=== PATIENT | female | born 1985 | race Caucasian/White ===

== ENCOUNTER → 2016-06-28 | Outpatient (CLI) | payer OTHER | LOC: RAD 14:33 | PROVIDERS: ATTEND Student in an Organized Health Care Education/Training Program | DX: N97.9 Female infertility, unspecified (principal) | CPT/HCPCS: 58340; 74740 ==

== ENCOUNTER 2016-09-12 04:36 | Emergency (ER) | payer OTHER ==
[2016-09-12] MEDS ORDERED: ALBUTEROL SULFATE 0.083% NEB 2.5 MG/3 ML AMPUL NEB ONE (06:01)
--- NOTE | 2016-09-12 06:02 | ER Document Report ---
ED Medical Screen (RME) - General Chief Complaint: Headache Stated Complaint: COUGHING UP BLOOD Notes: Patient with mildly productive cough since with blood-tinged sputum that started this morning. Admits to associated shortness of breath. Denies history of asthma, former smoker. Denies any other past medical history is TRAVEL OUTSIDE OF THE [place] IN LAST 30 DAYS: No - Related Data Allergies/Adverse Reactions: Penicillins Adverse Reaction (Mild, Verified 08/19/15 10:22) itch & abdo pain Past Medical History - Social History Frequency of alcohol use: None Renal/ Medical History: Reports: Hx Ectopic , Hx Kidney Stones, Hx Ovarian Cysts - PCO S., Hx Pelvic Inflammatory Disease. Denies: Hx Peritoneal Dialysis Musculoskeltal Medical History: Reports Hx Musculoskeletal Trauma Skin Medical History: Reports Hx Cellulitis Psychiatric Medical History: Reports: Hx Depression Traumatic Medical History: Reports: Hx Fractures Infectious Medical History: Denies: Hx MRSA Past Surgical History: Reports: Hx Gynecologic Surgery - ectopic , Hx Orthopedic Surgery - finger reconstruction as an following an injury - Immunizations Immunizations up to date: Yes Hx Diphtheria, Pertussis, Tetanus Vaccination: Yes Physical Exam - Vital signs Vitals: Temp Pulse Resp BP Pulse Ox 98.0 F 96 20 124/80 96 09/12/16 04:37 09/12/16 04:37 09/12/16 04:37 09/12/16 04:37 09/12/16 04:37 Course - Vital Signs Vital signs: Temp Pulse Resp BP Pulse Ox 98.0 F 96 16 124/80 96 09/12/16 04:37 09/12/16 04:37 09/12/16 04:43 09/12/16 04:37 09/12/16 04:37
[2016-09-12] MEDS ORDERED: IBUPROFEN 800 MG TABLET PO ONE (07:24)
--- NOTE | 2016-09-12 07:49 | ER Document Report ---
HPI - HPI Patient complains to provider of: cough, body aches Onset: Other - last Quality of pain: Achy Severity: Severe Pain Level: 5 Context: Patient presents emergency department with complaints of headache achy all over cough chest hurts when she coughs and vomited once. She reports she is producing yellow sputum. She reports and symptoms since . She denies fever or diarrhea. She reports no pain with void but reports frequency. Patient reports she's been taking Mucinex [id number] without relief of symptoms. Denies sick exposure but reports she works at [employer]. Associated Symptoms: Productive cough, Vomiting Exacerbated by: Coughing Relieved by: Denies Similar symptoms previously: No Recently seen / treated by doctor: No - REPRODUCTIVE Reproductive: DENIES: : - DERM Skin Color: Normal Past Medical History - General Information source: Patient Last Menstrual Period: jun- pcos - Social History Smoking Status: Never Smoker Cigarette use (# per day): No Frequency of alcohol use: Rare Drug Abuse: None Occupation: [employer] Lives with: Family Family History: Reviewed & Not Pertinent Patient has suicidal ideation: No Patient has homicidal ideation: No Renal/ Medical History: Reports: Hx Ectopic , Hx Kidney Stones, Hx Ovarian Cysts - PCO S., Hx Pelvic Inflammatory Disease. Denies: Hx Peritoneal Dialysis Musculoskeltal Medical History: Reports Hx Musculoskeletal Trauma Skin Medical History: Reports Hx Cellulitis Psychiatric Medical History: Reports: Hx Depression Traumatic Medical History: Reports: Hx Fractures Infectious Medical History: Denies: Hx MRSA Past Surgical History: Reports: Hx Gynecologic Surgery - ectopic , Hx Orthopedic Surgery - finger reconstruction as an following an injury - Immunizations Immunizations up to date: Yes Hx Diphtheria, Pertussis, Tetanus Vaccination: Yes Vertical Provider Document - CONSTITUTIONAL Agree With Documented VS: Yes Exam Limitations: No Limitations General Appearance: WD/WN, No Apparent Distress - INFECTION CONTROL TRAVEL OUTSIDE OF THE [place] IN LAST 30 DAYS: No - HEENT HEENT: Atraumatic, Normocephalic. negative: Conjuctival Injection, Pharyngeal Erythema - No peritonsillar abscess good clear voice no trismus, Tympanic Membrane Red, Tympanic Membrane Bulging - NECK Neck: Normal Inspection. negative: Supple, Lymphadenopathy-Left, Lymphadenopathy-Right - RESPIRATORY Respiratory: No Respiratory Distress, Rhonchi - Respiratory rate even nonlabored frequent cough noted O2 Sat by Pulse Oximetry: 96 - CARDIOVASCULAR Cardiovascular: Regular Rate, Regular Rhythm - GI/ABDOMEN Gastrointestinal: Abdomen Soft, Abdomen Non-Tender - BACK Back: Normal Inspection - MUSCULOSKELETAL/EXTREMETIES Musculoskeletal/Extremeties: JOON JOHANSEN - NEURO Level of Consciousness: Awake, Alert, Appropriate Motor/Sensory: No Motor Deficit - DERM Integumentary: Warm, Dry, No Rash Course - Re-evaluation Re-evalutation: 09/12/16 08:42 UA negative hCG negative. Patient instructed on infiltrate Zithromax. Patient instructed on importance of monitoring temperature Tylenol. Patient instructed on importance of follow-up with primary care provider. - Vital Signs Vital signs: Temp Pulse Resp BP Pulse Ox 98.0 F 96 16 124/80 96 09/12/16 04:37 09/12/16 04:37 09/12/16 04:43 09/12/16 04:37 09/12/16 04:37 - Diagnostic Test Radiology reviewed: Image reviewed, Reports reviewed - Diagnostic report text EXAM DESCRIPTION: CHEST PA/LAT COMPLETED DATE/TIME: 09/12/2016 6:11 am REASON FOR STUDY: cough COMPARISON: None. TECHNIQUE: Frontal and lateral radiographic views of the chest acquired. NUMBER OF VIEWS: Two view. LIMITATIONS: None. FINDINGS: LUNGS AND PLEURA: Patchy infiltrate is seen of the right lung base, lungs otherwise clear MEDIASTINUM AND HILAR STRUCTURES: No masses or contour abnormalities. HEART AND VASCULAR STRUCTURES: Heart normal size. No evidence for failure. BONES: No acute findings. HARDWARE: None in the chest. OTHER: No other significant finding. TECHNICAL DOCUMENTATION: JOB ID: [id number] [employer]- All Rights Reserved RAD/CHEST PA/LAT IMPRESSION: Patchy right basilar infiltrate Discharge - Discharge Clinical Impression: Cough, Elevated blood pressure reading Pneumonia Qualifiers: Pneumonia type: due to unspecified organism Laterality: right Lung location: lower lobe of lung Qualified Code(s): J18.1 - Lobar pneumonia, unspecified organism Headache Qualifiers: Headache type: unspecified Headache chronicity pattern: unspecified pattern Intractability: not intractable Qualified Code(s): R51 - Headache Condition: Stable Disposition: HOME, SELF-CARE Instructions: Azithromycin ([facility]), Pneumonia ([facility]), Headache ([facility]), Oral Narcotic Medication ([facility]) Additional Instructions: *You have been evaluated for a body aches cough, pneumonia, headache *Take medication as prescribed *Increase fluids *Monitor your temperature, take Tylenol as indicated *Follow up with a primary care provider within one week for recheck *Return to ED for increasing fever, cough, worsening condition, changes, needs, trouble breathing Monitor your blood pressure. Your blood pressure was elevated today. This may be because you were anxious, in pain or because you need medication. It is important to follow up with your primary care provider for full evaluation. Prescriptions: Azithromycin [Zithromax 250 mg Tablet] 250 mg PO ASDIR PRN #6 tablet PRN Reason: Hydrocodone/Acetaminophen [[place] 5-325 Tablet] 1 each PO QID #15 tablet Forms: Elevated Blood Pressure, Return to Work
[2016-09-12 08:11] LABS: APPEARANCE,URINE CLEAR; BILIRUBIN,URINE NEGATIVE (NEGATIVE); GLUCOSE, URINE NEGATIVE (NEGATIVE); KETONES,URINE NEGATIVE (NEGATIVE); LEUKOCYTE ESTERASE,URINE NEGATIVE (NEGATIVE); NITRITE,URINE NEGATIVE (NEGATIVE); PROTEIN,URINE NEGATIVE (NEGATIVE); UROBILINOGEN,URINE NEGATIVE mg/dL (<2.0)
[2016-09-12 09:14] VITALS: BP 138/84
== END 2016-09-12 08:58 | disposition home or self-care (01) ==
LOC: ER 04:36
DX: J18.1 Lobar pneumonia, unspecified organism (principal); R51 Headache; R05 Cough; R07.9 Chest pain, unspecified; R11.10 Vomiting, unspecified; R35.0 Frequency of micturition; R03.0 Elevated blood-pressure reading, without diagnosis of hypertension
CPT/HCPCS: 71020; 81001; 81025; 87804; 94640; 99283

== ENCOUNTER 2016-09-19 04:47 | Emergency (ER) | payer OTHER ==
--- NOTE | 2016-09-19 07:30 | ER Document Report ---
ED Respiratory Problem - General Chief Complaint: Productive Cough Stated Complaint: COUGH VOMITING SORE THROAT Time seen by provider: 07:28 Mode of Arrival: Ambulatory Information source: Patient Notes: 30-year-old female presents to ED for cough congestion and green sputum with nausea vomiting sore throat and body aches. She states she was treated for pneumonia last week and she has had intermittent fever. She has not had any fever for the last couple days. Speaking in full complete sentences. Does have a minor cough at this time afebrile. No acute distress at this time. 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 She has a past medical history of miscarriages pneumonia finger surgery PCO S and kidney stones. She also has an allergy of penicillin TRAVEL OUTSIDE OF THE [place] IN LAST 30 DAYS: No - HPI Patient complains to provider of: Cough Onset: Last week Duration: Continuous Initiating Event: URI Quality of pain: Achy Severity: Moderate Pain Level: 3 Cough: Productive Sputum amount: Small Sputum color: Green, Yellow Sputum consistency: Thick Associated symptoms: Cough, PND, Runny nose, Sore Throat. denies: Fever Similar symptoms previously: Yes Recently seen / treated by doctor: Yes - Related Data Allergies/Adverse Reactions: Penicillins Adverse Reaction (Mild, Verified 08/19/15 10:22) itch & abdo pain Past Medical History - General Information source: Patient - Social History Smoking Status: Never Smoker Cigarette use (# per day): No Chew tobacco use (# tins/day): No Smoking Education Provided: No Frequency of alcohol use: Occasional Drug Abuse: None Occupation: childcare Lives with: Family Family History: Arthritis, CAD, CVA, DM, Hyperlipidemia, Hypertension, Malignancy Patient has suicidal ideation: No Patient has homicidal ideation: No - Past Medical History Cardiac Medical History: Reports: None Pulmonary Medical History: Reports: Hx Pneumonia EENT Medical History: Reports: None Neurological Medical History: Reports: None Endocrine Medical History: Reports: None Renal/ Medical History: Reports: Hx Ectopic , Hx Kidney Stones, Hx Ovarian Cysts - PCO S., Hx Pelvic Inflammatory Disease Malignancy Medical History: Reports: None GI Medical History: Reports: None Musculoskeltal Medical History: Reports Hx Musculoskeletal Trauma Skin Medical History: Reports Hx Cellulitis Psychiatric Medical History: Reports: Hx Depression Traumatic Medical History: Reports: Hx Fractures Infectious Medical History: Reports: None Past Surgical History: Reports: Hx Gynecologic Surgery - ectopic , Hx Orthopedic Surgery - finger reconstruction as an following an injury - Immunizations Immunizations up to date: Yes Hx Diphtheria, Pertussis, Tetanus Vaccination: Yes Review of Systems - Review of Systems Constitutional: Recent illness EENT: Nose discharge, Sinus discharge, Throat pain Cardiovascular: No symptoms reported Respiratory: Cough Gastrointestinal: No symptoms reported Genitourinary: No symptoms reported Female Genitourinary: No symptoms reported Musculoskeletal: No symptoms reported Skin: No symptoms reported Hematologic/Lymphatic: No symptoms reported Neurological/Psychological: No symptoms reported Physical Exam - Vital signs Vitals: Temp Pulse Resp BP Pulse Ox 98.2 F 82 16 122/87 H 97 09/19/16 04:51 09/19/16 04:51 09/19/16 04:51 09/19/16 04:51 09/19/16 04:51 Interpretation: Normal - General General appearance: Appears well, Alert - HEENT Head: Normocephalic, Atraumatic Eyes: Normal Pupils: PERRL Ears: Normal External canal: Normal Tympanic membrane: Normal Nasal: Purulent discharge, Swelling Mouth/Lips: Normal Mucous membranes: Normal Pharynx: Post nasal drainage Neck: Normal - Respiratory Respiratory status: No respiratory distress Chest status: Nontender Breath sounds: Normal Chest palpation: Normal - Cardiovascular Rhythm: Regular Heart sounds: Normal auscultation Murmur: No - Abdominal Inspection: Normal Distension: No distension Bowel sounds: Normal Tenderness: Nontender Organomegaly: No organomegaly - Back Back: Normal, Nontender - Extremities General upper extremity: Normal inspection, Nontender, Normal color, Normal ROM , Normal temperature General lower extremity: Normal inspection, Nontender, Normal color, Normal ROM , Normal temperature, Normal weight bearing. No: Carine's sign - Neurological Neuro grossly intact: Yes Cognition: Normal Orientation: AAOx4 [place] Coma Scale Eye Opening: Spontaneous Pranay Coma Scale Verbal: Oriented [place] Coma Scale Motor: Obeys Commands Pranay Coma Scale Total: 15 Speech: Normal Motor strength normal: LUE, RUE, LLE, RLE Sensory: Normal - Psychological Associated symptoms: Normal affect, Normal mood - Skin Skin Temperature: Warm Skin Moisture: Dry Skin Color: Normal Course - Re-evaluation Re-evalutation: 09/19/16 11:44 Discussed x-rays and written report given to patient for discharge. Patient has upper respiratory infection she is to follow-up with her primary doctor. - Vital Signs Vital signs: Temp Pulse Resp BP Pulse Ox 98.0 F 70 16 120/80 100 09/19/16 09:18 09/19/16 09:18 09/19/16 09:18 09/19/16 09:18 09/19/16 09:18 - Diagnostic Test Radiology reviewed: Image reviewed, Reports reviewed Discharge - Discharge Clinical Impression: URI (upper respiratory infection) Qualifiers: URI type: unspecified URI Qualified Code(s): J06.9 - Acute upper respiratory infection, unspecified Condition: Stable Disposition: HOME, SELF-CARE Additional Instructions: UPPER RESPIRATORY ILLNESS: You have a viral infection of the respiratory passages -- a "cold." This common infection causes nasal congestion, drainage, and often sore throat and cough. It is highly contagious. The disease usually lasts about 10 to 14 days. There is no "cure" for the viral infection -- it must run its course. If there is a complication, such as bacterial infection in the nose, sinuses, middle ear, or bronchial tubes, antibiotics may be required. The antibiotics won't affect the virus. Drink plenty of fluids. A humidifier may help. An expectorant medication or decongestant may make you more comfortable. Use acetaminophen or ibuprofen for fever or aches. See the doctor if fever persists over two days, if there is any significant worsening of your symptoms, or if you simply fail to improve as expected. DECONGESTANT MEDICATION: A decongestant medicine has been prescribed. Often this medicine is combined in the same tablet with an antihistamine or expectorant. This type of medicine is helpful in treating a bad cold or sinus condition, as well as in treatment of the nasal congestion of hay fever. It is not of much benefit for lung infections. Decongestant medicines are related to stimulants. They can cause an increase in blood pressure and heart rate. Persons with heart disease and high blood pressure should not take decongestants without discussing this with the physician. If you develop palpitations, chest pain, headache, or tremors, stop the medicine and consult your physician. COUGH-SUPPRESSANT & EXPECTORANT MEDICATION: You are to use a cough medication as needed for relief of symptoms. This medicine is a combination of an expectorant (to make the mucous thinner and more easily "coughed up") and a cough suppressant (to reduce the frequency of coughing). The cough-suppressant medicine is related to narcotics. You may experience mild nausea and sleepiness. Some patients who are very sensitive to narcotics may have stomach pain from this medicine. Taking the medicine with food reduces these side effects. Do not drive or work with machinery until you know how this medicine affects you. The expectorant should have no side effects. Iodine-containing expectorants (such as organidin) should not be taken by persons with active thyroid disease unless approved by your doctor. Call the doctor if you develop shortness of breath, hives, rash, itching, lightheadedness, or severe nausea and vomiting. USE OF ACETAMINOPHEN (Tylenol): Acetaminophen may be taken for pain relief or fever control. It's much safer than aspirin, offering a wider range of "safe" dosages. It is safe during . Some brand names are Tylenol, Panadol, Datril, Anacin 3, Tempra, and Liquiprin. Acetaminophen can be repeated every four hours. The following are maximum recommended dosages: >89 pounds or adults 650 mg to 900 mg Acetaminophen can be repeated every four hours. Maximum dose not to exceed 4000 mg a day. FOLLOW-UP CARE: If you have been referred to a physician for follow-up care, call the physician s office for an appointment as you were instructed or within the next two days. If you experience worsening or a significant change in your symptoms, notify the physician immediately or return to the Emergency Department at any time for re-evaluation. Forms: Elevated Blood Pressure, Return to Work Referrals: ALISSON KUHN MD [Primary Care Provider] - Follow up as needed
[2016-09-19 07:39] LABS: APPEARANCE,URINE SLIGHTLY-CLOUDY; BILIRUBIN,URINE NEGATIVE (NEGATIVE); GLUCOSE, URINE NEGATIVE (NEGATIVE); KETONES,URINE NEGATIVE (NEGATIVE); LEUKOCYTE ESTERASE,URINE NEGATIVE (NEGATIVE); NITRITE,URINE NEGATIVE (NEGATIVE); PROTEIN,URINE NEGATIVE (NEGATIVE); URINE SPECIFIC GRAVITY 1.023; UROBILINOGEN,URINE NEGATIVE mg/dL (<2.0)
[2016-09-19 09:19] VITALS: BP 120/80
== END 2016-09-19 09:19 | disposition home or self-care (01) ==
LOC: ER 04:47
DX: J06.9 Acute upper respiratory infection, unspecified (principal); R05 Cough; R11.2 Nausea with vomiting, unspecified; J02.9 Acute pharyngitis, unspecified; J34.89 Other specified disorders of nose and nasal sinuses; Z87.01 Personal history of pneumonia (recurrent); Z88.0 Allergy status to penicillin
CPT/HCPCS: 71020; 81001; 81025; 99283

== ENCOUNTER 2016-11-08 04:09 | Emergency (ER) | payer OTHER ==
[2016-11-08] MEDS ORDERED: LORATADINE 10 MG TABLET PO ONE (05:06)
[2016-11-08] MEDS ORDERED: GUAIFENESIN 600 MG TABLET.SA PO ONE (05:06)
[2016-11-08] MEDS ORDERED: PSEUDOEPHEDRINE HCL 30 MG TABLET PO ONE (05:06)
[2016-11-08] MEDS ORDERED: IBUPROFEN 600 MG TABLET PO ONE (05:06)
--- NOTE | 2016-11-08 05:11 | ER Document Report ---
ED Respiratory Problem - General Chief Complaint: Cough Stated Complaint: COUGHING Time Seen by Provider: 11/08/16 04:40 Notes: 31-year-old female presents to ED for cough congestion. She states she has had the cough for a couple month now states she gets cough and then she loses her breath she states she has been afebrile. Speaking in full sentences TRAVEL OUTSIDE OF THE [place] IN LAST 30 DAYS: No - HPI Patient complains to provider of: Cough Onset: Other Duration: Continuous Initiating Event: URI Quality of pain: Achy Severity: Severe Pain Level: 5 Context: denies: Smoker Short of Breath: Mild Chest pain/discomfort: Tightness Cough: Nonproductive Sputum amount: None Associated symptoms: Cough, PND, Runny nose, Sinus pain/pressure, Wheezing - Feels like she is wheezing at home and that her lungs are tight. denies: Fever Similar symptoms previously: Yes Recently seen / treated by doctor: Yes - Related Data Allergies/Adverse Reactions: Penicillins Adverse Reaction (Mild, Verified 08/19/15 10:22) itch & abdo pain Past Medical History - General Information source: Patient - Social History Smoking Status: Former Smoker Cigarette use (# per day): No Chew tobacco use (# tins/day): No Smoking Education Provided: No Frequency of alcohol use: Occasional Drug Abuse: None Occupation: Childcare Lives with: Family Family History: Arthritis, CAD, CVA, DM, Hyperlipidemia, Hypertension, Malignancy Patient has suicidal ideation: No Patient has homicidal ideation: No - Past Medical History Cardiac Medical History: Reports: None Pulmonary Medical History: Reports: Hx Pneumonia EENT Medical History: Reports: None Neurological Medical History: Reports: None Endocrine Medical History: Reports: None Renal/ Medical History: Reports: Hx Ectopic , Hx Kidney Stones, Hx Ovarian Cysts - PCO S., Hx Pelvic Inflammatory Disease Malignancy Medical History: Reports: None GI Medical History: Reports: None Musculoskeltal Medical History: Reports Hx Musculoskeletal Trauma Skin Medical History: Reports Hx Cellulitis Psychiatric Medical History: Reports: Hx Depression Traumatic Medical History: Reports: Hx Fractures Infectious Medical History: Reports: None Past Surgical History: Reports: Hx Gynecologic Surgery - ectopic , Hx Orthopedic Surgery - finger reconstruction as an infant following an injury - Immunizations Immunizations up to date: Yes Hx Diphtheria, Pertussis, Tetanus Vaccination: Yes Review of Systems - Review of Systems Constitutional: Recent illness EENT: Nose discharge, Sinus discharge Cardiovascular: No symptoms reported Respiratory: Cough, Short of breath, Wheezing - She has been wheezing at home Gastrointestinal: No symptoms reported Genitourinary: No symptoms reported Female Genitourinary: No symptoms reported Musculoskeletal: No symptoms reported Skin: No symptoms reported Hematologic/Lymphatic: No symptoms reported Neurological/Psychological: No symptoms reported Physical Exam - Vital signs Vitals: Temp Pulse Resp BP Pulse Ox 98.5 F 88 20 128/87 H 96 11/08/16 04:14 11/08/16 04:14 11/08/16 04:14 11/08/16 04:14 11/08/16 04:14 Interpretation: Normal - General General appearance: Appears well, Alert - HEENT Head: Normocephalic, Atraumatic Eyes: Normal Pupils: PERRL Ears: Normal External canal: Normal Tympanic membrane: Normal Sinus: Normal Nasal: Purulent discharge, Swelling Mouth/Lips: Normal Mucous membranes: Normal Pharynx: Post nasal drainage. No: Erythema, Exudate, Peritonsillar abscess, Retropharyngeal abscess, Tonsillar hypertrophy, Uvular edema, Potential airway comprom. Neck: Normal - Respiratory Respiratory status: No respiratory distress Chest status: Nontender Breath sounds: Nonproductive cough. No: Rales, Rhonchi, Stridor, Wheezing Chest palpation: Normal - Cardiovascular Rhythm: Regular Heart sounds: Normal auscultation Murmur: No - Abdominal Inspection: Normal Distension: No distension Bowel sounds: Normal Tenderness: Nontender Organomegaly: No organomegaly - Back Back: Normal, Nontender - Extremities General upper extremity: Normal inspection, Nontender, Normal color, Normal ROM , Normal temperature General lower extremity: Normal inspection, Nontender, Normal color, Normal ROM , Normal temperature, Normal weight bearing. No: Carine's sign - Neurological Neuro grossly intact: Yes Cognition: Normal Orientation: AAOx4 Dennis Coma Scale Eye Opening: Spontaneous Pranay Coma Scale Verbal: Oriented Dennis Coma Scale Motor: Obeys Commands Dennis Coma Scale Total: 15 Speech: Normal Motor strength normal: LUE, RUE, LLE, RLE Sensory: Normal - Psychological Associated symptoms: Normal affect, Normal mood - Skin Skin Temperature: Warm Skin Moisture: Dry Skin Color: Normal Course - Re-evaluation Re-evalutation: 11/08/16 06:13 Chest x-ray with patient and written report given to patient for discharge to follow-up with her primary doctor. Treated with Sudafed and Mucinex Claritin and ibuprofen and states she feels much better - Vital Signs Vital signs: Temp Pulse Resp BP Pulse Ox 98.5 F 88 20 128/87 H 96 11/08/16 04:14 11/08/16 04:14 11/08/16 04:14 11/08/16 04:14 11/08/16 04:14 - Diagnostic Test Radiology reviewed: Image reviewed, Reports reviewed Discharge - Discharge Clinical Impression: URI (upper respiratory infection) Qualifiers: URI type: unspecified URI Qualified Code(s): J06.9 - Acute upper respiratory infection, unspecified Condition: Stable Disposition: HOME, SELF-CARE Instructions: Family Physicians / Practices Additional Instructions: UPPER RESPIRATORY ILLNESS: You have a viral infection of the respiratory passages -- a "cold." This common infection causes nasal congestion, drainage, and often sore throat and cough. It is highly contagious. The disease usually lasts about 10 to 14 days. There is no "cure" for the viral infection -- it must run its course. If there is a complication, such as bacterial infection in the nose, sinuses, middle ear, or bronchial tubes, antibiotics may be required. The antibiotics won't affect the virus. Drink plenty of fluids. A humidifier may help. An expectorant medication or decongestant may make you more comfortable. Use acetaminophen or ibuprofen for fever or aches. See the doctor if fever persists over two days, if there is any significant worsening of your symptoms, or if you simply fail to improve as expected. DECONGESTANT MEDICATION: A decongestant medicine has been suggested. Often this medicine is combined in the same tablet with an antihistamine or expectorant. This type of medicine is helpful in treating a bad cold or sinus condition, as well as in treatment of the nasal congestion of hay fever. It is not of much benefit for lung infections. Decongestant medicines are related to stimulants. They can cause an increase in blood pressure and heart rate. Persons with heart disease and high blood pressure should not take decongestants without discussing this with the physician. If you develop palpitations, chest pain, headache, or tremors, stop the medicine and consult your physician. COUGH-SUPPRESSANT & EXPECTORANT MEDICATION: You are to use a cough medication as needed for relief of symptoms. This medicine is a combination of an expectorant (to make the mucous thinner and more easily "coughed up") and a cough suppressant (to reduce the frequency of coughing). The cough-suppressant medicine is related to narcotics. You may experience mild nausea and sleepiness. Some patients who are very sensitive to narcotics may have stomach pain from this medicine. Taking the medicine with food reduces these side effects. Do not drive or work with machinery until you know how this medicine affects you. The expectorant should have no side effects. Iodine-containing expectorants (such as organidin) should not be taken by persons with active thyroid disease unless approved by your doctor. Call the doctor if you develop shortness of breath, hives, rash, itching, lightheadedness, or severe nausea and vomiting. USE OF ACETAMINOPHEN (Tylenol): Acetaminophen may be taken for pain relief or fever control. It's much safer than aspirin, offering a wider range of "safe" dosages. It is safe during . Some brand names are Tylenol, Panadol, Datril, Anacin 3, Tempra, and Liquiprin. Acetaminophen can be repeated every four hours. The following are maximum recommended dosages: >89 pounds or adults 650 mg to 900 mg Acetaminophen can be repeated every four hours. Maximum dose not to exceed 4000 mg a day. FOLLOW-UP CARE: If you have been referred to a physician for follow-up care, call the physician s office for an appointment as you were instructed or within the next two days. If you experience worsening or a significant change in your symptoms, notify the physician immediately or return to the Emergency Department at any time for re-evaluation. Forms: Elevated Blood Pressure
--- NOTE | 2016-11-08 05:42 | RADIOLOGY REPORT (SQ) ---
EXAM DESCRIPTION: CHEST PA/LAT COMPLETED DATE/TIME: 11/08/2016 5:29 am REASON FOR STUDY: cough chest congestion COMPARISON: 5.2.17 EXAM PARAMETERS: NUMBER OF VIEWS: two views TECHNIQUE: Digital Frontal and Lateral radiographic views of the chest acquired. RADIATION DOSE: NA LIMITATIONS: none FINDINGS: LUNGS AND PLEURA: No opacities, masses or pneumothorax. No pleural effusion. MEDIASTINUM AND HILAR STRUCTURES: No masses or contour abnormalities. HEART AND VASCULAR STRUCTURES: Heart normal size. No evidence for failure. BONES: No acute findings. HARDWARE: None in the chest. OTHER: No other significant finding. IMPRESSION: NO SIGNIFICANT RADIOGRAPHIC FINDING IN THE CHEST. TECHNICAL DOCUMENTATION: JOB ID: [id number] [employer]- All Rights Reserved
[2016-11-08 06:14] VITALS: BP 130/86
== END 2016-11-08 06:14 | disposition home or self-care (01) ==
LOC: ER 04:09
DX: J06.9 Acute upper respiratory infection, unspecified (principal); Z88.0 Allergy status to penicillin; Z87.898 Personal history of other specified conditions; Z87.891 Personal history of nicotine dependence
CPT/HCPCS: 71020; 99283

== ENCOUNTER 2017-08-24 02:33 | Emergency (ER) | payer OTHER ==
[2017-08-24 05:22] LABS: APPEARANCE,URINE CLEAR; BILIRUBIN,URINE NEGATIVE (NEGATIVE); COLOR,URINE YELLOW; GLUCOSE, URINE NEGATIVE (NEGATIVE); KETONES,URINE NEGATIVE (NEGATIVE); LEUKOCYTE ESTERASE,URINE NEGATIVE (NEGATIVE); NITRITE,URINE NEGATIVE (NEGATIVE); PROTEIN,URINE NEGATIVE (NEGATIVE); URINE SPECIFIC GRAVITY 1.017; UROBILINOGEN,URINE NEGATIVE mg/dL (<2.0)
[2017-08-24] MEDS ORDERED: KETOROLAC TROMETHAMINE INJ/PF 30 MG/1 ML SDV IV ONE (05:24)
[2017-08-24] MEDS ORDERED: NORMAL SALINE 1000 ML 1,000 ML IV ONE (05:25)
[2017-08-24] MEDS ORDERED: ONDANSETRON HCL INJ/PF 4 MG/2 ML SDV IV ONE (05:25)
--- NOTE | 2017-08-24 05:27 | ER Document Report ---
ED Medical Screen (RME) - General Chief Complaint: Urinary Problem Stated Complaint: URINARY SYMPTONS Time Seen by Provider: 08/24/17 05:20 Notes: 31-year-old female, chief complaint of pain in her mid lower abdomen, left lower abdomen, and radiating around to her left back. She states she was treated with Macrobid for UTI recently, states symptoms of pain with urination never went away. She reports nausea, denies vomiting, denies fever or chills. She has a history of kidney stones as well. TRAVEL OUTSIDE OF THE [place] IN LAST 30 DAYS: No - Related Data Allergies/Adverse Reactions: Penicillins Adverse Reaction (Mild, Verified 08/19/15 10:22) itch & abdo pain Past Medical History Pulmonary Medical History: Reports: Hx Pneumonia Renal/ Medical History: Reports: Hx Ectopic , Hx Kidney Stones, Hx Ovarian Cysts - PCO S., Hx Pelvic Inflammatory Disease. Denies: Hx Peritoneal Dialysis Musculoskeltal Medical History: Reports Hx Musculoskeletal Trauma Skin Medical History: Reports Hx Cellulitis Psychiatric Medical History: Reports: Hx Depression Traumatic Medical History: Reports: Hx Fractures Infectious Medical History: Denies: Hx MRSA Past Surgical History: Reports: Hx Gynecologic Surgery - ectopic , Hx Orthopedic Surgery - finger reconstruction as an infant following an injury - Immunizations Immunizations up to date: Yes Hx Diphtheria, Pertussis, Tetanus Vaccination: Yes Physical Exam - Vital signs Vitals: Temp Pulse Resp BP Pulse Ox 97.7 F 128 H 18 115/75 96 08/24/17 02:34 08/24/17 02:34 08/24/17 02:34 08/24/17 02:34 08/24/17 02:34 - Abdominal Tenderness: Tender - Pain over the suprapubic and left lower quadrant, otherwise soft benign abdomen - Back Back: No: CVA tenderness - No obvious CVA tenderness Course - Re-evaluation Re-evalutation: Patient reporting dysuria, has suprapubic and left lower quadrant pain, also has a history of ovarian cysts, no obvious CVA tenderness noted, she is tachycardic. Workup pending, giving IV fluids and pain management. I have greeted and performed a rapid initial assessment of this patient. A comprehensive ED assessment and evaluation of the patient, analysis of test results and completion of the medical decision making process will be conducted by additional ED providers. - Vital Signs Vital signs: Temp Pulse Resp BP Pulse Ox 97.7 F 128 H 18 115/75 96 08/24/17 02:34 08/24/17 02:34 08/24/17 02:34 08/24/17 02:34 08/24/17 02:34
[2017-08-24 06:17] LABS: ABSOLUTE BASOPHILS # (AUTO) 0.1 10^3/uL (0.0-0.2); ABSOLUTE EOSINOPHILS # (AUTO) 0.3 10^3/uL (0.0-0.6); ABSOLUTE LYMPHOCYTES (AUTO) 2.6 10^3/uL (0.5-4.7); ABSOLUTE MONOCYTES (AUTO) 0.5 10^3/uL (0.1-1.4); ABSOLUTE NEUT (AUTO) 6.6 10^3/uL (1.7-8.2); BASOPHILS % (AUTO) 0.5 % (0-2); EOSINOPHILS % (AUTO) 2.8 % (0-6); HEMATOCRIT 42.6 % (36.0-47.0); HEMOGLOBIN 14.4 g/dL (12.0-15.5); LYMPHOCYTES % (AUTO) 25.6 % (13-45); MEAN CORPUSCULAR HEMOGLOBIN 29.7 pg (27.0-33.4); MEAN CORPUSCULAR HGB CONC 33.7 g/dL (32.0-36.0); MEAN CORPUSCULAR VOLUME 88 fl (80-97); MONOCYTES % (AUTO) 5.3 % (3-13); PLATELET COUNT 358 10^3/uL (150-450); RED BLOOD COUNT 4.84 10^6/uL (3.72-5.28); RED CELL DISTRIBUTION WIDTH 12.7 % (11.5-14.0); SEGMENTED NEUTROPHILS % (AUTO) 65.8 % (42-78); TOTAL CELLS COUNTED % (AUTO) 100 %
[2017-08-24 06:32] LABS: ANION GAP 10 (5-19); BLOOD UREA NITROGEN 11 mg/dL (7-20); CARBON DIOXIDE 25 mmol/L (22-30); CHLORIDE 108 mmol/L (98-107); GLUCOSE 93 mg/dL (75-110); POTASSIUM 4.7 mmol/L (3.6-5.0); SODIUM 142.9 mmol/L (137-145)
--- NOTE | 2017-08-24 06:56 | ER Document Report ---
ED General - General Chief Complaint: Urinary Problem Stated Complaint: URINARY SYMPTONS Time Seen by Provider: 08/24/17 05:20 Notes: 31-year-old female presents to the ER complaining of burning and pain with urination for the last several weeks. The patient has been diagnosed with UTI and placed on antibiotics and states she is no better. Patient denies any fever or chills. Complains of a little bit of lower abdominal cramping but not severe pain. Denies any vaginal discharge or bleeding she is due for her period to start any time now. Denies chest pain or shortness of breath denies cough night sweats or hemoptysis. Describes the discomfort of burning with urination and it is only with urination. She denies any unprotected sexual contact. TRAVEL OUTSIDE OF THE [place] IN LAST 30 DAYS: No - Related Data Allergies/Adverse Reactions: Penicillins Adverse Reaction (Mild, Verified 08/19/15 10:22) itch & abdo pain Past Medical History - Social History Smoking Status: Never Smoker Family History: Arthritis, CAD, CVA, DM, Hyperlipidemia, Hypertension, Malignancy Patient has suicidal ideation: No Patient has homicidal ideation: No Pulmonary Medical History: Reports: Hx Pneumonia Renal/ Medical History: Reports: Hx Ectopic , Hx Kidney Stones, Hx Ovarian Cysts - PCO S., Hx Pelvic Inflammatory Disease. Denies: Hx Peritoneal Dialysis Musculoskeltal Medical History: Reports Hx Musculoskeletal Trauma Skin Medical History: Reports Hx Cellulitis Psychiatric Medical History: Reports: Hx Depression Traumatic Medical History: Reports: Hx Fractures Infectious Medical History: Denies: Hx MRSA Past Surgical History: Reports: Hx Gynecologic Surgery - ectopic , Hx Orthopedic Surgery - finger reconstruction as an infant following an injury - Immunizations Immunizations up to date: Yes Hx Diphtheria, Pertussis, Tetanus Vaccination: Yes Review of Systems - Review of Systems Gastrointestinal: denies: Nausea, Vomiting Genitourinary: Burning, Dysuria, Frequency, Urgency. denies: Discharge, Flank pain Female Genitourinary: denies: , Post menopausal, Heavy/abnormal periods , Irregular period, Vaginal discharge, Vaginal bleeding Skin: No symptoms reported -: Yes All other systems reviewed and negative Physical Exam - Vital signs Vitals: Temp Pulse Resp BP Pulse Ox 97.7 F 128 H 18 115/75 96 08/24/17 02:34 08/24/17 02:34 08/24/17 02:34 04/06/18 02:34 08/24/17 02:34 - Notes Notes: GENERAL_APPEARANCE: well_nourished, alert, cooperative, no_acute_distress, no_ obvious_discomfort. VITALS: reviewed, see vital signs table. HEAD: no_swelling\tenderness on the head. EYES: conjunctiva_clear. NOSE: no_nasal_discharge. MOUTH: (-)decreased moisture. THROAT: no_tonsilar_inflammation, no_airway_obstruction. no_lymphadenopathy NECK: supple, no_neck_tenderness, (-)thyromegaly. BACK: no_back_tenderness. CHEST_WALL: no_chest_tenderness. LUNGS: no_wheezing, no_rales, no_rhonchi, (-)accessory muscle use, good air exchange bilateral. HEART: normal_rate, normal_rhythm, normal_S1, normal_S2, (-)S3, (-)S4, no_ murmur, no_rub. ABDOMEN: normal_BS, soft, no_abd_tenderness, (-)guarding, (-)rebound, no_ organomegaly, no_abd_masses. PELVIC: There is no cervical motion tenderness, negative cervicitis, there is a small amount of blood at the os calc is closed. EXTREMITIES: no_swelling\tenderness in the extremities, no_edema. SKIN: warm, dry, good_color, no_rash. MENTAL_STATUS: speech_clear, oriented_X_3, normal_affect, responds_ appropriately to questions. Course - Re-evaluation Re-evalutation: 08/24/17 06:58 81-year-old female history of kidney stones and UTI presents increased urinary frequency she denies hematuria. She really does not complain of any abdominal pain to some generalized discomfort on and off she has no tenderness at McBurney 's point. Exam showed no significant abnormalities. We will get a CT to assess for any kind of slow stone at the UVJ causing urinary symptoms. She does have a history of stones. 08/24/17 08:38 CT scan of the abdomen and pelvis is normal no kidney stones Wet prep is positive for bacterial vaginosis no trichomonas. Gonorrhea and Chlamydia are pending. There is no cervicitis noted I will treat the patient just for the bacterial vaginosis with Flagyl. The patient follow up with her OB /[facility]. Patient will be discharged home. - Vital Signs Vital signs: Temp Pulse Resp BP Pulse Ox 97.7 F 128 H 18 115/75 96 08/24/17 02:34 08/24/17 02:34 08/24/17 02:34 08/24/17 02:34 08/24/17 02:34 - Laboratory Result Diagrams: 08/24/17 05:48 08/24/17 05:48 Laboratory results interpreted by me: 08/24/17 05:48 Chloride 108 H Discharge - Discharge Clinical Impression: BV (bacterial vaginosis) Condition: Good Disposition: HOME, SELF-CARE Instructions: Vaginosis, Bacterial ([facility]) Prescriptions: Metronidazole [Flagyl 500 mg Tablet] 500 mg PO Q8H #21 tablet Forms: Return to Work Referrals: KT CORDOVA MD [Primary Care Provider] - Follow up as needed
[2017-08-24 07:05] LABS: BACTERIA (WET MOUNT) 4+ BACTERIA SEEN; RBCS (WET MOUNT) 2+ RBCS SEEN; T.VAGINALIS (WET MOUNT) NO TRICHOMONAS SEEN; WBCS (WET MOUNT) 2+ WBCS SEEN; YEAST (WET MOUNT) NO YEAST SEEN
--- NOTE | 2017-08-24 07:34 | RADIOLOGY REPORT (SQ) ---
EXAM DESCRIPTION: CT ABDOMEN AND PELVIS WITHOUT CONTRAST CLINICAL HISTORY: L flank pain urinary symptoms COMPARISON: 02/02/2015 TECHNIQUE: CT of the abdomen and pelvis without IV contrast. Evaluation of the solid organs and vasculature is suboptimal due to lack of IV contrast. DLP: 489.21 mGy-cm FINDINGS: Lung Bases: The visualized lung bases are clear. Bones: No destructive bone lesions identified. Abdomen: Liver: The liver has normal size and decreased density. Gallbladder: No calcified gallstones. Spleen, Pancreas, and Adrenal Glands: The spleen, pancreas, and adrenal glands are unremarkable. Kidneys: The kidneys have normal size and contour without evidence of hydronephrosis. No obstructing ureteral calculi. Vasculature: The aorta and IVC have normal caliber and position. Stomach: The stomach and duodenum have normal course. Other: No free intraperitoneal air. No free fluid or lymphadenopathy. Pelvis: Bladder: Urinary bladder is unremarkable. Bowel: No dilated loops of large or small bowel. Appendix: Normal appendix. Pelvis: Uterus is not enlarged. IMPRESSION: 1. No acute inflammatory or obstructive process identified. 2. Hepatic steatosis. This exam was performed according to our departmental dose-optimization program, which includes automated exposure control, adjustment of the mA and/or kV according to patient size and/or use of iterative reconstruction technique.
[2017-08-24 08:36] LABS: CHLAM PCR NOT DETECTED (NOT DETECT); GON PCR NOT DETECTED (NOT DETECT)
[2017-08-24 09:25] VITALS: BP 112/76
== END 2017-08-24 09:10 | disposition home or self-care (01) ==
LOC: ER 02:33
DX: N76.0 Acute vaginitis (principal); B96.89 Other specified bacterial agents as the cause of diseases classified elsewhere; R30.0 Dysuria; Z87.442 Personal history of urinary calculi; Z87.440 Personal history of urinary (tract) infections; Z88.0 Allergy status to penicillin
CPT/HCPCS: 99284; 96361; 96374; 96375; 36415; 87210; 85025; 81025; 80048; 81001; 87491; 87591; 76380; J1885; J2405; J7030

== ENCOUNTER → 2017-11-09 | Outpatient (CLI) | payer OTHER ==
[2017-11-09 08:41] LABS: ANION GAP 12 (5-19); BLOOD UREA NITROGEN 15 mg/dL (7-20); CALCIUM 9.8 mg/dL (8.4-10.2); CARBON DIOXIDE 24 mmol/L (22-30); CHLORIDE 108 mmol/L (98-107); CHOLESTEROL 155.95 mg/dL (0-200); GLUCOSE 104 mg/dL (75-110); POTASSIUM 4.5 mmol/L (3.6-5.0); SODIUM 143.7 mmol/L (137-145); TRIGLYCERIDES 97 mg/dL (<150)
[2017-11-09 08:52] LABS: DIRECT LDL 83 mg/dL (<100)
== END ==
LOC: OD 07:05
PROVIDERS: ATTEND Family Medicine
DX: Z00.00 Encounter for general adult medical examination without abnormal findings (principal)
CPT/HCPCS: 36415; 80048; 80061; 83036; 84443

== ENCOUNTER 2020-03-30 20:38 | Inpatient (IN) | payer BC, OTHER ==
[2020-03-30] MEDS ORDERED: NORMAL SALINE 1000 ML 1,000 ML IV ONE (21:05)
[2020-03-30] MEDS ORDERED: METHYLPREDNISOLONE INJ 125 MG/2 ML SDV IV ONE (21:05)
[2020-03-30] MEDS ORDERED: METHYLPREDNISOLONE INJ 125 MG/2 ML SDV ONE (23:10)
--- NOTE | 2020-03-30 23:18 | ER Document Report ---
ED General - General Chief Complaint: Shortness Of Breath Stated Complaint: SHORTNESS OF BREATH Time Seen by Provider: 03/30/20 21:04 Primary Care Provider: KT JUSTICE MD [Primary Care Provider] - Follow up as needed Mode of Arrival: Ambulatory Information source: Patient Notes: Patient is a 34-year-old female comes emergency room with complaint of being Covid positive. Patient states that she was exposed to Covid 2 weeks ago by her 12-year-old son. She also started 2 weeks ago having upper respiratory symptoms to include congestion and runny nose. According to patient she saw Dr. Justice who put her on 2 courses of Zithromax and she has not gotten any better. Patient went to [facility] today because she is getting more short of breath they gave her a breathing treatment today and that did not help. They do want to suggest that she come to the emergency room for evaluation. Patient states she does not smoke drink or do drugs. She has only history of polycystic ovarian disease her last period was approximately 2 months ago but is not unusual for her to be irregular. Patient states she is coughing so hard that it wants to make her throw up. And she is getting more short of breath by the day. TRAVEL OUTSIDE OF THE [place] IN LAST 30 DAYS: No - HPI Onset: Last week Onset/Duration: Gradual, Persistent, Worse Quality of pain: Achy, Throbbing Severity: Severe Pain Level: 4 Associated symptoms: Chills, Nonproductive cough, Fever, Nausea, Shortness of breath, Weakness Exacerbated by: Movement, Coughing, Deep breathing Relieved by: Denies Similar symptoms previously: Yes Recently seen / treated by doctor: Yes - Related Data Allergies/Adverse Reactions: Penicillins Adverse Reaction (Mild, Verified 03/30/20 23:18) itch & abdo pain Past Medical History - General Information source: Patient - Social History Smoking Status: Current Every Day Smoker Cigarette use (# per day): Yes Smoking Education Provided: Yes Frequency of alcohol use: None Drug Abuse: None Lives with: Family Family History: Reviewed & Not Pertinent, Arthritis, CAD, CVA, DM, Hyperlipidemia, Hypertension, Malignancy Pulmonary Medical History: Reports: Hx Pneumonia Renal/ Medical History: Reports: Hx Ectopic , Hx Kidney Stones, Hx Ovarian Cysts - PCO S., Hx Pelvic Inflammatory Disease. Denies: Hx Peritoneal Dialysis Musculoskeletal Medical History: Reports Hx Musculoskeletal Trauma Skin Medical History: Reports Hx Cellulitis Psychiatric Medical History: Reports: Hx Depression Traumatic Medical History: Reports: Hx Fractures Infectious Medical History: Denies: Hx MRSA Past Surgical History: Reports: Hx Gynecologic Surgery - ectopic , Hx Orthopedic Surgery - finger reconstruction as an following an injury - Immunizations Immunizations up to date: Yes Hx Diphtheria, Pertussis, Tetanus Vaccination: Yes Review of Systems - Review of Systems Constitutional: No symptoms reported, Fever, Malaise EENT: See HPI, Nose congestion Cardiovascular: No symptoms reported Respiratory: See HPI, Cough, Short of breath, Wheezing Gastrointestinal: No symptoms reported Genitourinary: No symptoms reported Female Genitourinary: No symptoms reported Musculoskeletal: No symptoms reported Skin: No symptoms reported Hematologic/Lymphatic: No symptoms reported Neurological/Psychological: No symptoms reported -: Yes All other systems reviewed and negative Physical Exam - Vital signs Vitals: Temp Pulse Resp BP Pulse Ox 99.1 F 111 H 22 H 127/71 H 92 03/30/20 20:41 03/30/20 20:41 03/30/20 20:41 03/30/20 20:41 03/30/20 20:41 Interpretation: Hypertensive, Tachycardic - Notes Notes: PHYSICAL EXAMINATION: GENERAL: Patient is a well-nourished well-developed 34-year-old female though in no apparent distress on physical exam she does appear uncomfortable and is constantly hacking and coughing. HEAD: Atraumatic, normocephalic. EYES: Pupils equal round and reactive to light, extraocular movements intact, conjunctiva are normal. ENT: Examination patient's head and upper airway show nasal mucosa be very erythematous and edematous with rhinorrhea noted clear in color. No frontal or maxillary sinus tenderness to palpation. Bilateral TMs appear normal without any retraction or bulging. Posterior pharynx shows some mild erythema no exudate is noted. Uvula is midline with no encroachment upon it. Airway is patent. NECK: Normal range of motion, supple without lymphadenopathy LUNGS: Auscultation patient's lungs show she has bilateral breath sounds which are decreased throughout faint expiratory wheezes noted. No rhonchi is heard. HEART: Tachycardic rate at 111bpm. And rhythm without murmurs ABDOMEN: Soft, nontender, nondistended abdomen. No guarding, no rebound. No masses appreciated. Female : deferred Musculoskeletal: Normal range of motion, no pitting or edema. No cyanosis. NEUROLOGICAL: Normal speech, normal gait. Normal sensory, motor exams PSYCH: Normal mood, normal affect. SKIN: Warm, Dry, normal turgor, no rashes or lesions noted. Course - Re-evaluation Re-evalutation: 03/31/20 02:26 I gave patient Tylenol 3 x2 tablets which significantly reduced her cough and allowed her to rest some. Patient has been satting at 92 to 93% without ambulation and not on oxygen. She has received steroids currently and hospitalist is in interviewing patient. Hospitalist has accepted patient for admission 03/31/20 02:59 - Vital Signs Vital signs: Temp Pulse Resp BP Pulse Ox 98.4 F 94 20 107/61 93 03/31/20 01:22 03/31/20 01:22 03/31/20 01:22 03/31/20 01:22 03/31/20 01:22 - Laboratory Result Diagrams: 03/31/20 00:07 03/31/20 00:07 Laboratory results interpreted by me: 03/31/20 03/31/20 00:07 00:07 WBC 10.9 H Glucose 141 H AST 57 H ALT 78 H Discharge - Discharge Clinical Impression: Lab test positive for detection of COVID-19 virus, Hypoxemia Condition: Stable Disposition: ADMITTED INPATIENT Admitting Provider: Efreno/hospitalist Unit Admitted: Telemetry Referrals: KT JUSTICE MD [Primary Care Provider] - Follow up as needed
[2020-03-30] MEDS ORDERED: ONDANSETRON HCL INJ/PF 4 MG/2 ML SDV IV ONE ×2 (23:40→23:43)
[2020-03-30] MEDS ORDERED: ACETAMINOPHEN WITH CODEINE #3 TABLET PO ONE (23:41)
[2020-03-31 00:27] LABS: ABSOLUTE LYMPHOCYTES (AUTO) 2.1 10^3/uL (0.5-4.7); ABSOLUTE MONOCYTES (AUTO) 0.7 10^3/uL (0.1-1.4); BASOPHILS % (AUTO) 0.1 % (0-2); HEMATOCRIT 42.2 % (36.0-47.0); HEMOGLOBIN 14.8 g/dL (12.0-15.5); LYMPHOCYTES % (AUTO) 19.5 % (13-45); MEAN CORPUSCULAR HGB CONC 35.2 g/dL (32.0-36.0); MEAN CORPUSCULAR VOLUME 88 fl (80-97); MONOCYTES % (AUTO) 6.9 % (3-13); PLATELET COUNT 310 10^3/uL (150-450); RED BLOOD COUNT 4.79 10^6/uL (3.72-5.28); RED CELL DISTRIBUTION WIDTH 13.2 % (11.5-14.0); SEGMENTED NEUTROPHILS % (AUTO) 73.5 % (42-78); TOTAL CELLS COUNTED % (AUTO) 100 %; WHITE BLOOD COUNT 10.9 10^3/uL (4.0-10.5)
--- NOTE | 2020-03-31 00:57 | RADIOLOGY REPORT (SQ) ---
EXAM DESCRIPTION: XR CHEST 1 VIEW COMPLETED DATE/TME: 03/31/2020 00:15 CLINICAL HISTORY: Hypoxemia COMPARISON: 11/08/2016 FINDINGS: Single frontal radiograph view of the chest. Cardiomediastinal silhouette: Normal size and contour. Lungs: Low lung volumes. Elevation the right hemidiaphragm. Patchy right perihilar opacities. No pneumothorax or large effusion. Bones: No acute osseous abnormality. Upper abdomen: No abnormality identified. IMPRESSION: 1. Patchy right perihilar opacities may be related to low lung volumes and crowding of the hilar structures however developing pneumonic process could also produce this appearance.
[2020-03-31 01:06] LABS: ALBUMIN 4.8 g/dL (3.5-5.0); ALKALINE PHOSPHATASE 101 U/L (38-126); ANION GAP 14 (5-19); ASPARTATE AMINO TRANSFERASE 57 U/L (14-36); BILIRUBIN,DIRECT 0.3 mg/dL (0.0-0.4); BILIRUBIN,TOTAL 0.9 mg/dL (0.2-1.3); BLOOD UREA NITROGEN 12 mg/dL (7-20); CALCIUM 9.7 mg/dL (8.4-10.2); CARBON DIOXIDE 27 mmol/L (22-30); CHLORIDE 98 mmol/L (98-107); GLUCOSE 141 mg/dL (75-110); POTASSIUM 3.6 mmol/L (3.6-5.0); TOTAL PROTEIN 8.2 g/dL (6.3-8.2)
[2020-03-31 01:15] LABS: A TYPE INFLUENZA AG NEGATIVE (NEGATIVE); B INFLUENZA AG NEGATIVE (NEGATIVE)
[2020-03-31] MEDS ORDERED: ONDANSETRON HCL INJ/PF 4 MG/2 ML SDV IV PRN (02:40)
[2020-03-31 02:44] LABS: APPEARANCE,URINE CLEAR; BILIRUBIN,URINE NEGATIVE (NEGATIVE); COLOR,URINE STRAW; GLUCOSE, URINE NEGATIVE (NEGATIVE); KETONES,URINE NEGATIVE (NEGATIVE); LEUKOCYTE ESTERASE,URINE NEGATIVE (NEGATIVE); NITRITE,URINE NEGATIVE (NEGATIVE); PROTEIN,URINE NEGATIVE (NEGATIVE); URINE SPECIFIC GRAVITY 1.004; UROBILINOGEN,URINE NEGATIVE mg/dL (<2.0)
--- NOTE | 2020-03-31 03:12 | PDOC H&P ---
History of Present Illness Admission Date/PCP: KT CORDOVA MD Patient complains of: Shortness of breath, confirmed COVID-19 infection History of Present Illness: RAYMUNDO DUARTE is a 34 year old female with no significant past medical history who has been diagnosed with COVID-19 2 days back now presents to the ED with 2 days duration of worsening of shortness of breath. She states that she was exposed to COVID-19 from her 12-year-old son. She was seen at [facility] this morning for the same complaint and she was given breathing treatment which did not improve her symptoms and was sent to the ED for further management. Associated with malaise she also reports dry cough, pleuritic chest pain, generalized body ache and subjective fever. She was started on azithromycin 2 days back by her primary care doctor but no improvement in her symptoms. She also has nausea, vomiting, diarrhea and feels lightheaded when she stands. She states that 3 of her family members currently diagnosed with COVID-19 and her is currently isolating himself at home with minor symptoms. During the evaluation at the ER patient's oxygen saturation was 92 on room air but with minimal exertion it dropped to 90% Past Medical History Pulmonary Medical History: Reports: Pneumonia Psychiatric Medical History: Reports: Depression Infectious Medical History: Denies: Methicillin-Resistant Staph Aureus Past Surgical History Past Surgical History: Reports: Orthopedic Surgery - finger reconstruction as an infant following an injury Social History Information Source: Patient Lives with: Family Smoking Status: Current Every Day Smoker Frequency of Alcohol Use: Occasional Hx Recreational Drug Use: No Drugs: None - Advance Directive Resuscitation Status: Do Not Resuscitate Family History Family History: Reviewed & Not Pertinent, Arthritis, CAD, CVA, DM, Hyperlipidemia, Hypertension, Malignancy Parental Family History Reviewed: Yes Children Family History Reviewed: Yes Sibling(s) Family History Reviewed.: Yes Medication/Allergy Home Medications: Metformin HCl 500 mg PO BID 08/19/15 Methocarbamol [Robaxin 750 mg Tablet] 750 mg PO QID #40 tablet 08/19/15 Naproxen [Naprosyn 250 Nmg Tablet] 500 mg PO BIDP PRN #30 tablet 08/19/15 Famotidine [Pepcid 20 mg Tablet] 20 mg PO DAILY #30 tablet 09/15/15 Hydrocodone/Acetaminophen [[place] 5-325 mg Tablet] 1 tab PO Q6 #10 tablet 09/15/15 Promethazine HCl [Phenergan 25 mg Tablet] 25 - 50 mg PO ASDIR PRN #12 tablet 09/15/15 Azithromycin [Zithromax 250 mg Tablet] 250 mg PO ASDIR PRN #6 tablet 09/12/16 Hydrocodone/Acetaminophen [[place] 5-325 Tablet] 1 each PO QID #15 tablet 09/12/16 Metronidazole [Flagyl 500 mg Tablet] 500 mg PO Q8H #21 tablet 08/24/17 Allergies/Adverse Reactions: Penicillins Adverse Reaction (Mild, Verified 03/30/20 23:18) itch & abdo pain Review of Systems Constitutional: PRESENT: as per HPI Eyes: ABSENT: visual disturbances Ears: ABSENT: hearing changes Nose, Mouth, and Throat: ABSENT: as per HPI, headache(s), mouth pain, sore thr oat, vertigo, other Cardiovascular: PRESENT: as per HPI Respiratory: PRESENT: as per HPI Gastrointestinal: PRESENT: as per HPI Genitourinary: ABSENT: dysuria, hematuria Musculoskeletal: ABSENT: joint swelling Integumentary: ABSENT: rash, wounds Neurological: ABSENT: abnormal gait, abnormal speech, confusion, dizziness, foca l weakness, syncope Psychiatric: ABSENT: anxiety, depression, homidical ideation, suicidal ideation Endocrine: ABSENT: cold intolerance, heat intolerance, polydipsia, polyuria Hematologic/Lymphatic: ABSENT: easy bleeding, easy bruising Physical Exam Vital Signs: Temp Pulse Resp BP Pulse Ox 98.4 F 94 20 107/61 93 03/31/20 01:22 03/31/20 01:22 03/31/20 01:22 03/31/20 01:22 03/31/20 01:22 Intake & Output 03/29/20 03/30/20 03/31/20 06:59 06:59 06:59 Intake Total 1000 Balance 1000 Weight 86.183 kg Additional comments: GENERAL APPEARANCE: Alert and oriented x3, in mild distress HEENT: Normocephalic and atraumatic. No scleral icterus. NECK: Supple. No lymphadenopathy or tenderness. No JVD CHEST: Symmetric. Nontender to palpation. LUNGS: Good air entry bilaterally. Bibasilar scattered fine crackles appreciated HEART: Regular rate and rhythm with normal S1 and S2. No murmurs, gallops, or rubs. ABDOMEN: Flat, soft, active bowel sounds, no direct or rebound tenderness. No organomegaly detected. EXTREMITIES: No cyanosis, clubbing, or edema. MUSCULOSKELETAL: No deformity, atrophy or swelling noted PSYCHIATRIC: Recent and remote memory is intact. Appropriate mood and affect. SKIN: Warm, dry, and well perfused. No lesions or rashes are noted. NEUROLOGIC: No focal sensory or motor deficits are noted. Results Laboratory Results: 03/31/20 00:07 03/31/20 00:07 03/31/20 03/31/20 03/31/20 00:07 00:07 02:12 WBC 10.9 H RBC 4.79 Hgb 14.8 Hct 42.2 MCV 88 MCH 31.0 MCHC 35.2 RDW 13.2 Plt Count 310 Seg Neutrophils % 73.5 Sodium 138.8 Potassium 3.6 Chloride 98 Carbon Dioxide 27 Anion Gap 14 BUN 12 Creatinine 0.74 Est GFR ( Amer) > 60 Glucose 141 H Calcium 9.7 Total Bilirubin 0.9 AST 57 H Alkaline Phosphatase 101 Total Protein 8.2 Albumin 4.8 Urine Color STRAW Urine Appearance CLEAR Urine pH 6.0 Ur Specific [employer] [place] 1.004 Urine Protein NEGATIVE Urine Glucose (UA) NEGATIVE Urine Ketones NEGATIVE Urine Blood NEGATIVE Urine Nitrite NEGATIVE Ur Leukocyte Esterase NEGATIVE Urine WBC (Auto) 0 03/31/20 00:07 Troponin I < 0.012 Impressions: Chest X-Ray 03/30/20 23:40 IMPRESSION: 1. Patchy right perihilar opacities may be related to low lung volumes and crowding of the hilar structures however developing pneumonic process could also produce this appearance. Assessment and Plan - Diagnosis (1) Hypoxemia Is this a current diagnosis for this admission?: Yes Plan: Patient was recently diagnosed for COVID-19 2 days back Now presents with worsening shortness of breath Oxygen saturation during the evaluation ranging 90 and 92% Chest x-ray showed right hilar opacity concerning for developing pneumonia likely viral Continue supportive measures including zinc, vitamin C, vitamin D Supplemental oxygen to keep saturation above 94% Tylenol for fever Consider convalescent plasma and remdesivir due to hypoxia (2) COVID-19 virus infection Is this a current diagnosis for this admission?: Yes Plan: Patient has a confirmed COVID-19 infection Was treated with breathing treatment [facility] did not improve Continue supportive care including oxygen, Tylenol for fever, zinc, vitamin C, v itamin D Intranasal oxygen as required to keep saturation above 94% (3) Obesity (BMI 30.0-34.9) Is this a current diagnosis for this admission?: Yes Plan: Encourage lifestyle changes including exercise and dietary modification to attain optimal weight - Time Time Spent with patient: 35 or more minutes Total Critical Time (Minutes): 35 Medications reviewed and adjusted accordingly: Yes Anticipated Discharge Disposition: Home, Self Care Anticipated Discharge Timeframe: within 48 hours - Inpatient Certification Based on my medical assessment, after consideration of the patient's comorbidities, presenting symptoms, or acuity I expect that the services needed warrant INPATIENT care.: Yes I certify that my determination is in accordance with my understanding of Medicare's requirements for reasonable and necessary INPATIENT services [42 CFR 412.3e].: Yes Medical Necessity: Failure to Improve With Outpatient Therapy, Need Close Monitoring Due to Risk of Patient Decompensation, Risk of Complication if Not Cared For in Hospital Post Hospital Care: D/C or Transfer Summary
[2020-03-31 04:00] LABS: C-REACTIVE PROTEIN 40.7 mg/L (<10.0)
[2020-03-31] MEDS: ENOXAPARIN SODIUM INJ 40 MG/0.4 ML DISP.SYRIN SUBCUT SCH (09:48)
[2020-03-31] MEDS: ASCORBIC ACID 500 MG TABLET PO SCH ×2 (09:48→17:45)
[2020-03-31] MEDS: ZINC SULFATE 220 MG CAPSULE PO SCH (09:48)
[2020-03-31] MEDS: FAMOTIDINE 20 MG TABLET PO SCH ×2 (09:48→21:38)
[2020-03-31] MEDS ORDERED: DEXAMETHASONE SOD PHOSPHATE INJ 4 MG/1 ML VIAL ONE (10:50)
[2020-03-31] MEDS: DEXAMETHASONE SOD PHOS INJ 10 MG/1 ML VIAL IV SCH (10:56)
--- NOTE | 2020-03-31 16:49 | Progress Note ---
Provider Note Provider Note: Patient with a positive Covid test 2 days ago was admitted with dyspnea and oxygen saturation on room air of less than 94% at rest. She is received Decadron and convalescent plasma. Currently on 2 L per nasal cannula. Technically she meets criteria for being at risk for severe disease. We will start remdesivir therapy.
--- NOTE | 2020-03-31 17:37 | EKG REPORT ---
SEVERITY:- ABNORMAL ECG - SINUS TACHYCARDIA NONSPECIFIC ST-T ABNORMALITIES, DIFFUSE LEADS LVH : Confirmed by: Troy Mejia 31-Mar-2020 17:37:19
[2020-03-31] MEDS ORDERED: REMDESIVIR (EUA) 200 MG in NORMAL SALINE 250 ML IV ONE (18:30)
[2020-03-31] MEDS: ACETAMINOPHEN 325 MG TABLET PO PRN (18:57)
[2020-04-01] MEDS ORDERED: IPRATROPIUM/ALBUTEROL 0.5-2.5 MG/3 ML AMPUL NEB PRN ×2 (02:51→03:11)
[2020-04-01] MEDS ORDERED: INFLUENZA QUAD (6MOS+) 2020-21 VAC 0.5 ML SYR IM ONE (08:00)
[2020-04-01] MEDS: FAMOTIDINE 20 MG TABLET PO SCH ×2 (09:40→21:51)
[2020-04-01] MEDS: ZINC SULFATE 220 MG CAPSULE PO SCH (09:40)
[2020-04-01] MEDS: ASCORBIC ACID 500 MG TABLET PO SCH ×2 (09:40→17:23)
[2020-04-01] MEDS: ENOXAPARIN SODIUM INJ 40 MG/0.4 ML DISP.SYRIN SUBCUT SCH (09:40)
[2020-04-01] MEDS: DEXAMETHASONE SOD PHOS INJ 10 MG/1 ML VIAL IV SCH (11:44)
[2020-04-01] MEDS: DEXAMETHASONE SOD PHOSPHATE INJ 4 MG/1 ML VIAL IV SCH (11:46)
[2020-04-01] MEDS: ACETAMINOPHEN 325 MG TABLET PO PRN (15:32)
--- NOTE | 2020-04-01 15:32 | PDOC PROGRESS REPORT ---
Subjective Date:: 04/01/20 Subjective:: No adverse events overnight. No new complaints. Vital signs been stable. Donnell ng and drinking without difficulty. Currently stable on 2 L per nasal cannula. She said that she is interested in donating her convalescent plasma when she gets through all this. Reason For Visit: HYPOXEMIA, COVID-19 INFECTION Physical Exam Vital Signs: Temp Pulse Resp BP Pulse Ox 97.5 F 79 17 124/82 96 04/01/20 12:07 04/01/20 12:07 04/01/20 12:07 04/01/20 12:07 04/01/20 12:07 Intake & Output 03/31/20 04/01/20 04/02/20 06:59 06:59 06:59 Intake Total 1000 461 Balance 1000 461 Weight 86.183 kg 86.5 kg General appearance: PRESENT: no acute distress, cooperative, disheveled, obese Respiratory exam: PRESENT: crackles - Faint bibasilar, symmetrical, unlabored. ABSENT: accessory muscle use, chest wall tenderness, prolonged expiratory phas, rhonchi, tachypnea, wheezes Cardiovascular exam: PRESENT: RRR, +S1, +S2 Pulses: PRESENT: normal carotid pulses Vascular exam: PRESENT: normal capillary refill GI/Abdominal exam: PRESENT: normal bowel sounds, soft. ABSENT: distended, guarding, rebound, tenderness Extremities exam: ABSENT: clubbing, pedal edema Musculoskeletal exam: PRESENT: normal inspection. ABSENT: deformity Neurological exam: PRESENT: alert, awake, oriented to person, oriented to place, oriented to situation Psychiatric exam: PRESENT: appropriate affect, normal mood Skin exam: PRESENT: dry, warm Results Laboratory Results: 03/31/20 00:07 03/31/20 00:07 03/31/20 03/31/20 00:07 03:25 Creatine Kinase 66 Troponin I < 0.012 Impressions: Chest X-Ray 03/30/20 23:40 IMPRESSION: 1. Patchy right perihilar opacities may be related to low lung volumes and crowding of the hilar structures however developing pneumonic process could also produce this appearance. Assessment and Plan - Diagnosis (1) Acute hypoxemic respiratory failure Is this a current diagnosis for this admission?: Yes (2) COVID-19 virus infection Is this a current diagnosis for this admission?: Yes (3) Obesity (BMI 30.0-34.9) Is this a current diagnosis for this admission?: Yes - Plan Summary Summary: She has received convalescent plasma. She is getting remdesivir. She is on Decadron. She is on oxygen support per nasal cannula. She has been steady on the nasal cannula for a couple of days now. She has been sick for a little over a week from the onset of her symptoms. We will continue current treatment and adjust treatment according to clinical condition. - Time Time Spent with patient: 15-24 minutes Anticipated Discharge Disposition: Home, Self Care Anticipated Discharge Timeframe: Undetermined
--- OUTSIDE RECORDS SUMMARY | 2020-04-01 17:47 | XMS REPORT ---
:1985 Author Organization [facility] Address [address] [address] Care Team Providers Name Role Phone Unavailable Unavailable Unavailable Allergies, Adverse Reactions, Alerts This patient has no known allergies or adverse reactions. Medications This patient has no known medications. Problems Condition Condition Condition Status Onset Resolution Last Treatin g Comments Name Details Category Date Date Treatment Clinician Date Not on file Not on file [id number] Procedures This patient has no known procedures. Results This patient has no known results. Encounters Start End Encounter Admission Attending Care Care Encounter ID Date/Time Date/Time Type Type Clinicians Facility Department 2019-10-28 2019-10-28 Outpatient [facility] [id number] 00:00:00 00:00:00 Plan of Treatment Planned Activity Planned Date Details Comments Future Scheduled Test [code = ] Future Scheduled Test [code = ] Future Scheduled Test [code = ] Social History This patient has no known social history. Vital Signs This patient has no known vital signs.
[2020-04-01] MEDS: REMDESIVIR (EUA) 100 MG in NORMAL SALINE 250 ML IV SCH (21:51)
[2020-04-02] MEDS: GUAIFENESIN/CODEINE PHOS 100-10 MG/ 5 ML UDC PO PRN ×2 (09:54→19:49)
[2020-04-02] MEDS: ZINC SULFATE 220 MG CAPSULE PO SCH (09:54)
[2020-04-02] MEDS: ENOXAPARIN SODIUM INJ 40 MG/0.4 ML DISP.SYRIN SUBCUT SCH (09:54)
[2020-04-02] MEDS: DEXAMETHASONE SOD PHOSPHATE INJ 4 MG/1 ML VIAL IV SCH (09:54)
[2020-04-02] MEDS: FAMOTIDINE 20 MG TABLET PO SCH ×2 (09:54→21:58)
[2020-04-02] MEDS: ASCORBIC ACID 500 MG TABLET PO SCH ×2 (09:54→17:29)
--- NOTE | 2020-04-02 14:18 | PDOC PROGRESS REPORT ---
Subjective Date:: 04/02/20 Subjective:: No adverse events overnight. No new complaints. Vital signs been stable. Donnell ng and drinking without difficulty. Currently stable on room air, she says she wants to try to spend more time on room air if possible. Reason For Visit: HYPOXEMIA, COVID-19 INFECTION Physical Exam Vital Signs: Temp Pulse Resp BP Pulse Ox 98.2 F 57 L 18 108/60 94 04/02/20 11:13 04/02/20 11:13 04/02/20 11:13 04/02/20 11:13 04/02/20 11:13 Intake & Output 04/01/20 04/02/20 04/03/20 06:59 06:59 06:59 Intake Total 461 846 Balance 461 846 Weight 86.5 kg 86.7 kg General appearance: PRESENT: no acute distress, cooperative, disheveled, obese Respiratory exam: PRESENT: crackles - Faint bibasilar, symmetrical, unlabored. ABSENT: accessory muscle use, chest wall tenderness, prolonged expiratory phas, rhonchi, tachypnea, wheezes Cardiovascular exam: PRESENT: RRR, +S1, +S2 Pulses: PRESENT: normal carotid pulses Vascular exam: PRESENT: normal capillary refill GI/Abdominal exam: PRESENT: normal bowel sounds, soft. ABSENT: distended, guarding, rebound, tenderness Extremities exam: ABSENT: clubbing, pedal edema Musculoskeletal exam: PRESENT: normal inspection. ABSENT: deformity Neurological exam: PRESENT: alert, awake, oriented to person, oriented to place, oriented to situation Psychiatric exam: PRESENT: appropriate affect, normal mood Skin exam: PRESENT: dry, warm Results Laboratory Results: 03/31/20 00:07 03/31/20 00:07 03/31/20 03/31/20 00:07 03:25 Creatine Kinase 66 Troponin I < 0.012 Impressions: Chest X-Ray 03/30/20 23:40 IMPRESSION: 1. Patchy right perihilar opacities may be related to low lung volumes and crowding of the hilar structures however developing pneumonic process could also produce this appearance. Assessment and Plan - Diagnosis (1) Acute hypoxemic respiratory failure Is this a current diagnosis for this admission?: Yes (2) COVID-19 virus infection Is this a current diagnosis for this admission?: Yes (3) Obesity (BMI 30.0-34.9) Is this a current diagnosis for this admission?: Yes - Plan Summary Summary: She has received convalescent plasma. She is getting remdesivir. She is on Decadron. She is on oxygen support per nasal cannula. She has been steady on the nasal cannula for a few days, wants to try being on room air for a while. She has had 3 out of 5 days of remdesivir at this point. - Time Time Spent with patient: 15-24 minutes Anticipated Discharge Disposition: Home, Self Care Anticipated Discharge Timeframe: within 72 hours
[2020-04-02] MEDS: REMDESIVIR (EUA) 100 MG in NORMAL SALINE 250 ML IV SCH (21:59)
[2020-04-03] MEDS: ACETAMINOPHEN 325 MG TABLET PO PRN (05:28)
[2020-04-03] MEDS: GUAIFENESIN/CODEINE PHOS 100-10 MG/ 5 ML UDC PO PRN ×3 (05:29→23:32)
[2020-04-03] MEDS: FAMOTIDINE 20 MG TABLET PO SCH ×2 (09:13→23:31)
[2020-04-03] MEDS: DEXAMETHASONE SOD PHOSPHATE INJ 4 MG/1 ML VIAL IV SCH (09:14)
[2020-04-03] MEDS: ASCORBIC ACID 500 MG TABLET PO SCH ×2 (09:14→17:12)
[2020-04-03] MEDS: ENOXAPARIN SODIUM INJ 40 MG/0.4 ML DISP.SYRIN SUBCUT SCH (09:14)
[2020-04-03] MEDS: ZINC SULFATE 220 MG CAPSULE PO SCH (09:14)
--- NOTE | 2020-04-03 16:06 | PDOC PROGRESS REPORT ---
Subjective Date:: 04/03/20 Subjective:: No adverse events overnight. No new complaints. Vital signs been stable. Eati ng and drinking without difficulty. Currently stable on room air, she says she has been on room air since yesterday. Reason For Visit: HYPOXEMIA, COVID-19 INFECTION Physical Exam Vital Signs: Temp Pulse Resp BP Pulse Ox 97.5 F 57 L 17 125/73 97 04/03/20 11:21 04/03/20 11:21 04/03/20 11:21 04/03/20 11:21 04/03/20 11:21 Intake & Output 04/02/20 04/03/20 04/04/20 06:59 06:59 06:59 Intake Total 846 250 Balance 846 250 Weight 86.7 kg 85 kg General appearance: PRESENT: no acute distress, cooperative, disheveled, obese Respiratory exam: PRESENT: Clear to auscultation bilaterally, symmetrical, unlabored. ABSENT: accessory muscle use, chest wall tenderness, prolonged expiratory phase, rhonchi, tachypnea, wheezes Cardiovascular exam: PRESENT: RRR, +S1, +S2 Pulses: PRESENT: normal carotid pulses Vascular exam: PRESENT: normal capillary refill GI/Abdominal exam: PRESENT: normal bowel sounds, soft. ABSENT: distended, guarding, rebound, tenderness Extremities exam: ABSENT: clubbing, pedal edema Musculoskeletal exam: PRESENT: normal inspection. ABSENT: deformity Neurological exam: PRESENT: alert, awake, oriented to person, oriented to place, oriented to situation Psychiatric exam: PRESENT: appropriate affect, normal mood Skin exam: PRESENT: dry, warm Results Laboratory Results: 03/31/20 00:07 03/31/20 00:07 03/31/20 03/31/20 00:07 03:25 Creatine Kinase 66 Troponin I < 0.012 Impressions: Chest X-Ray 03/30/20 23:40 IMPRESSION: 1. Patchy right perihilar opacities may be related to low lung volumes and crowding of the hilar structures however developing pneumonic process could also produce this appearance. Assessment and Plan - Diagnosis (1) Acute hypoxemic respiratory failure Is this a current diagnosis for this admission?: Yes (2) COVID-19 virus infection Is this a current diagnosis for this admission?: Yes (3) Obesity (BMI 30.0-34.9) Is this a current diagnosis for this admission?: Yes - Plan Summary Summary: She has received convalescent plasma. She is getting remdesivir. She is on Decadron. She is on oxygen support per nasal cannula. She has been steady on room air. She has had 4 out of 5 days of remdesivir at this point. If she looks like this tomorrow, after she gets her fifth dose of remdesivir she can probably go home. - Time Time Spent with patient: 15-24 minutes Anticipated Discharge Disposition: Home, Self Care Anticipated Discharge Timeframe: within 24 hours
[2020-04-03] MEDS: REMDESIVIR (EUA) 100 MG in NORMAL SALINE 250 ML IV SCH (23:31)
[2020-04-04] MEDS: DEXAMETHASONE SOD PHOSPHATE INJ 4 MG/1 ML VIAL IV SCH (10:20)
[2020-04-04] MEDS: ZINC SULFATE 220 MG CAPSULE PO SCH (10:20)
[2020-04-04] MEDS: FAMOTIDINE 20 MG TABLET PO SCH (10:20)
[2020-04-04] MEDS: ASCORBIC ACID 500 MG TABLET PO SCH (10:20)
[2020-04-04] MEDS: ENOXAPARIN SODIUM INJ 40 MG/0.4 ML DISP.SYRIN SUBCUT SCH (10:21)
[2020-04-04] MEDS ORDERED: REMDESIVIR (EUA) 100 MG in NORMAL SALINE 250 ML IV ONE (12:00)
[2020-04-04 14:00] VITALS: BP 122/58
--- NOTE | 2020-04-04 16:32 | PDOC DISCHARGE SUMMARY ---
Impression - Admit/DC Date/PCP Admission Date/Primary Care Provider: 03/31/20 03:05 KT CORDOVA MD Discharge Date: 04/04/20 - Discharge Diagnosis (1) Acute hypoxemic respiratory failure Is this a current diagnosis for this admission?: Yes (2) COVID-19 virus infection Is this a current diagnosis for this admission?: Yes (3) Obesity (BMI 30.0-34.9) Is this a current diagnosis for this admission?: Yes - Assessment Summary: She has received convalescent plasma. She is getting remdesivir. She is on Decadron. She is on oxygen support per nasal cannula. She has been steady on room air. She has had 4 out of 5 days of remdesivir at this point. If she looks like this tomorrow, after she gets her fifth dose of remdesivir she can probably go home. - Additional Information Resuscitation Status: Full Code Discharge Diet: Regular Discharge Activity: Activity As Tolerated Referrals: KT CORDOVA MD [Primary Care Provider] - 04/07/20 11:00 am Prescriptions: Codeine Phosphate/Guaifenesin [Codeine-Guaifen 10-100 mg/5 ml] 5 ml PO Q6HP PRN #120 ml PRN Reason: Home Medications: Cetirizine HCl [Zyrtec 10 mg Tablet] 10 mg PO QHS 03/31/20 Codeine Phosphate/Guaifenesin [Codeine-Guaifen 10-100 mg/5 ml] 5 ml PO Q6HP PRN #120 ml 04/04/20 History of Present Illiness History of Present Illness: RAYMUNDO DUARTE is a 34 year old female with no significant past medical history who has been diagnosed with COVID-19 2 days back now presents to the ED with 2 days duration of worsening of shortness of breath. She states that she was exposed to COVID-19 from her 12-year-old son. She was seen at [facility] this morning for the same complaint and she was given breathing treatment which did not improve her symptoms and was sent to the ED for further management. Associated with malaise she also reports dry cough, pleuritic chest pain, generalized body ache and subjective fever. She was started on azithromycin 2 days back by her primary care doctor but no improvement in her symptoms. She also has nausea, vomiting, diarrhea and feels lightheaded when she stands. She states that 3 of her family members currently diagnosed with COVID-19 and her is currently isolating himself at home with minor symptoms. During the evaluation at the ER patient's oxygen saturation was 92 on room air but with minimal exertion it dropped to 90% Hospital Course Hospital Course: She responded very well to treatment. She has been on room air for the past couple of days and is breathing comfortably. She has been afebrile. She finished up a course of remdesivir. She is able to perform all of her ADLs. We are discharging her today with a little bit of cough syrup to help with the residual cough that she has. She was advised that she should probably stay out of work this week and if her symptoms do not recur she would probably be out of the window with which she is able to transmit the virus to others. She wants to donate her plasma and I advised her to contact the local chapter of the [employer] and they would direct her further. Her labs and examination were reassuring and she was discharged in stable condition. Physical Exam Vital Signs: Temp Pulse Resp BP Pulse Ox 97.9 F 46 L 18 122/58 L 96 04/04/20 13:52 04/04/20 13:52 04/04/20 13:52 04/04/20 13:52 04/04/20 13:52 Intake & Output 04/03/20 04/04/20 04/05/20 06:59 06:59 06:59 Intake Total 250 868 Balance 250 868 Weight 85 kg 84.5 kg General appearance: PRESENT: no acute distress, cooperative, disheveled, obese Respiratory exam: PRESENT: Clear to auscultation bilaterally, symmetrical, unlabored. ABSENT: accessory muscle use, chest wall tenderness, prolonged expiratory phase, rhonchi, tachypnea, wheezes Cardiovascular exam: PRESENT: RRR, +S1, +S2 Pulses: PRESENT: normal carotid pulses Vascular exam: PRESENT: normal capillary refill GI/Abdominal exam: PRESENT: normal bowel sounds, soft. ABSENT: distended, guarding, rebound, tenderness Extremities exam: ABSENT: clubbing, pedal edema Musculoskeletal exam: PRESENT: normal inspection. ABSENT: deformity Neurological exam: PRESENT: alert, awake, oriented to person, oriented to place, oriented to situation Psychiatric exam: PRESENT: appropriate affect, normal mood Skin exam: PRESENT: dry, warm Results Laboratory Results: WBC 10.9 10^3/uL (4.0-10.5) H 03/31/20 00:07 RBC 4.79 10^6/uL (3.72-5.28) 03/31/20 00:07 Hgb 14.8 g/dL (12.0-15.5) 03/31/20 00:07 Hct 42.2 % (36.0-47.0) 03/31/20 00:07 MCV 88 fl (80-97) 03/31/20 00:07 MCH 31.0 pg (27.0-33.4) 03/31/20 00:07 MCHC 35.2 g/dL (32.0-36.0) 03/31/20 00:07 RDW 13.2 % (11.5-14.0) 03/31/20 00:07 Plt Count 310 10^3/uL (150-450) 03/31/20 00:07 Lymph % (Auto) 19.5 % (13-45) 03/31/20 00:07 [place] % (Auto) 6.9 % (3-13) 03/31/20 00:07 Eos % (Auto) 0.0 % (0-6) 03/31/20 00:07 Baso % (Auto) 0.1 % (0-2) 03/31/20 00:07 Absolute Neuts (auto) 8.0 10^3/uL (1.7-8.2) 03/31/20 00:07 Absolute Lymphs (auto) 2.1 10^3/uL (0.5-4.7) 03/31/20 00:07 Absolute Monos (auto) 0.7 10^3/uL (0.1-1.4) 03/31/20 00:07 Absolute Eos (auto) 0.0 10^3/uL (0.0-0.6) 03/31/20 00:07 Absolute Basos (auto) 0.0 10^3/uL (0.0-0.2) 03/31/20 00:07 Seg Neutrophils % 73.5 % (42-78) 03/31/20 00:07 D-Dimer 0.31 ug/mL (0.00-0.50) 03/31/20 00:07 Sodium 138.8 mmol/L (137-145) 03/31/20 00:07 Potassium 3.6 mmol/L (3.6-5.0) 03/31/20 00:07 Chloride 98 mmol/L (98-107) 03/31/20 00:07 Carbon Dioxide 27 mmol/L (22-30) 03/31/20 00:07 Anion Gap 14 (5-19) 03/31/20 00:07 BUN 12 mg/dL (7-20) 03/31/20 00:07 Creatinine 0.74 mg/dL (0.52-1.25) 03/31/20 00:07 Est GFR ( Amer) > 60 (>60) 03/31/20 00:07 Est GFR (MDRD) Non-Af > 60 (>60) 03/31/20 00:07 Glucose 141 mg/dL (75-110) H 03/31/20 00:07 Calcium 9.7 mg/dL (8.4-10.2) 03/31/20 00:07 Ferritin 495.00 ng/mL (6.2-137.0) H 03/31/20 03:25 Total Bilirubin 0.9 mg/dL (0.2-1.3) 03/31/20 00:07 Direct Bilirubin 0.3 mg/dL (0.0-0.4) 03/31/20 00:07 Neonat Total Bilirubin Not Reportable 03/31/20 00:07 Neonat Direct Bilirubin Not Reportable 03/31/20 00:07 Neonat Indirect Bili Not Reportable 03/31/20 00:07 AST 57 U/L (14-36) H 03/31/20 00:07 ALT 78 U/L (<35) H 03/31/20 00:07 Alkaline Phosphatase 101 U/L (38-126) 03/31/20 00:07 Lactate Dehydrogenase 259 U/L (120-246) H 03/31/20 03:25 Creatine Kinase 66 U/L (30-135) 03/31/20 03:25 Troponin I < 0.012 ng/mL 03/31/20 00:07 C-Reactive Protein 40.7 mg/L (<10.0) H 03/31/20 03:25 Total Protein 8.2 g/dL (6.3-8.2) 03/31/20 00:07 Albumin 4.8 g/dL (3.5-5.0) 03/31/20 00:07 Beta HCG, Quant < 2.39 mIU/mL (0.0-6.15) 03/31/20 00:07 Total Beta HCG NEGATIVE (NEGATIVE) 03/31/20 00:07 Urine Color STRAW 03/31/20 02:12 Urine Appearance CLEAR 03/31/20 02:12 Urine pH 6.0 (5.0-9.0) 03/31/20 02:12 Ur Specific [place] 1.004 03/31/20 02:12 Urine Protein NEGATIVE mg/dL (NEGATIVE) 03/31/20 02:12 Urine Glucose (UA) NEGATIVE mg/dL (NEGATIVE) 03/31/20 02:12 Urine Ketones NEGATIVE mg/dL (NEGATIVE) 03/31/20 02:12 Urine Blood NEGATIVE (NEGATIVE) 03/31/20 02:12 Urine Nitrite NEGATIVE (NEGATIVE) 03/31/20 02:12 Urine Bilirubin NEGATIVE (NEGATIVE) 03/31/20 02:12 Urine Urobilinogen NEGATIVE mg/dL (<2.0) 03/31/20 02:12 Ur Leukocyte Esterase NEGATIVE (NEGATIVE) 03/31/20 02:12 Urine WBC (Auto) 0 /HPF 03/31/20 02:12 Urine Bacteria (Auto) TRACE /HPF 03/31/20 02:12 Squamous Epi Cells Auto <1 /HPF 03/31/20 02:12 Urine Mucus (Auto) RARE /LPF 03/31/20 02:12 Urine Ascorbic Acid NEGATIVE (NEGATIVE) 03/31/20 02:12 Influenza A (Rapid) NEGATIVE (NEGATIVE) 03/31/20 00:07 Influenza B (Rapid) NEGATIVE (NEGATIVE) 03/31/20 00:07 Blood Type O POSITIVE 03/31/20 03:15 Antibody Screen NEGATIVE 03/31/20 03:15 03/31/20 00:07 Troponin I < 0.012 Impressions: Chest X-Ray 03/30/20 23:40 IMPRESSION: 1. Patchy right perihilar opacities may be related to low lung volumes and crowding of the hilar structures however developing pneumonic process could also produce this appearance. Plan Time Spent: Greater than 30 Minutes Stroke Is this a Stroke Patient?: No Acute Heart Failure Is this a Heart Failure Patient?: No
== END 2020-04-04 15:00 | disposition home or self-care (01) | DRG 177 ==
LOC: ER 20:38 → EH 03-31 03:05 → 3N 03-31 17:21
PROVIDERS: ADMIT Student in an Organized Health Care Education/Training Program; ATTEND Family Medicine
PROC: XW033E5 Introduction of Remdesivir Anti-infective into Peripheral Vein, Percutaneous Approach, New Technology Group 5 (ICD-10-PCS; principal; 2020-03-31)
PROC: XW13325 Transfusion of Convalescent Plasma (Nonautologous) into Peripheral Vein, Percutaneous Approach, New Technology Group 5 (ICD-10-PCS; 2020-03-31)
PROC: 3E02340 Introduction of Influenza Vaccine into Muscle, Percutaneous Approach (ICD-10-PCS; 2020-04-04)
DX: U07.1 COVID-19 (principal); J96.01 Acute respiratory failure with hypoxia; E66.9 Obesity, unspecified; Z66 Do not resuscitate; F17.210 Nicotine dependence, cigarettes, uncomplicated; Z88.8 Allergy status to other drugs, medicaments and biological substances; Z82.49 Family history of ischemic heart disease and other diseases of the circulatory system; Z83.3 Family history of diabetes mellitus; Z82.3 Family history of stroke; Z23 Encounter for immunization
CPT/HCPCS: 36415; 36430; 71045; 80053; 81001; 82550; 82728; 83615; 84484; 84702; 85025; 85379; 86140; 86850; 86900; 86901; 87804; 90471; 90686; 93005; 93010; 94640; 96361; 96374; 96375; 99285; G0008; G0378; J1100; J1650; J2405; J2930; J3490; J7030; J7050

== ENCOUNTER → 2020-04-14 | Outpatient (CLI) | payer BC ==
[2020-04-14 08:30] LABS: ANION GAP 10 (5-19); BLOOD UREA NITROGEN 9 mg/dL (7-20); CALCIUM 9.7 mg/dL (8.4-10.2); CARBON DIOXIDE 24 mmol/L (22-30); CHLORIDE 103 mmol/L (98-107); CHOLESTEROL 236.31 mg/dL (0-200); GLUCOSE 182 mg/dL (75-110); POTASSIUM 4.3 mmol/L (3.6-5.0); TRIGLYCERIDES 331 mg/dL (<150)
[2020-04-14 08:41] LABS: DIRECT LDL 154 mg/dL (<100)
[2020-04-14 08:42] LABS: VLDL CHOLESTEROL 66.2 mg/dL (10-31)
== END ==
LOC: OD 07:03
PROVIDERS: ATTEND Family Medicine
DX: Z00.00 Encounter for general adult medical examination without abnormal findings (principal)
CPT/HCPCS: 36415; 80048; 80061; 83036; 84443